=== PATIENT | male | born 1955 | race Caucasian/White ===

== ENCOUNTER 2016-08-20 20:57 | Inpatient (IN) | payer OTHER, MEDICARE ==
[~2016-08-20] VITALS: Ht 180.3 cm; Wt 72.1 kg
--- NOTE | ~2016-08-20 | CNG ---
[facility] [place] [address] CYTO-NONGYN REPORT PROCEDURE Name: SAL HUGGINS Room #: 439-P DIS IN M.R.#: [id number] Admission: 08/20/16 Date of : 53 Discharge: 08/26/16 Report #: [id number] Path Case #: [id number] CYTOPATHOLOGY REPORT COLLECTION DATE: 08/25/2016 RECEIVED DATE: 08/25/2016 SUBMITTING PHYS: Dr. Terell Quintanilla OTHER PHYS: Dr. Nicole Torres CLINICAL HISTORY: SOB; Pneumonia PROCEDURE: A. Passes performed by Dr. Quintanilla yielding fluid. Four H and E slides, and 15 mL from needle rinsed in formalin were submitted to the lab. B .Passes performed by Dr. Quintanilla yielding fluid. Two H and E slides Pass 1, two H and E slides Pass 6. Thirty mL from needle rinsed in formalin were submitted to the lab. C. Passes performed by Dr. Quintanilla yielding fluid. Two H and E slides, and 20 mL from needle rinsed in formalin were submitted to the lab. D. Passes performed by Dr. Quintanilla yielding fluid. Two H and E slides, and 10 mL from needle rinsed in formalin were submitted to the lab. SPECIMEN(S) RECEIVED: A.EBUS guided Fine needle aspiration, lymph node 11R Passes 6 B.EBUS guided Fine needle aspiration, lymph node 7 Passes 1-7 C.EBUS guided Fine needle aspiration, lymph node 11L Passes 1-3 D.EBUS guided 19 gaugeTBNA, lymph node 7 Passes 1-2 E.Bronchoalveolar lavage, RUL F.Bronchial brushings, RUL G.Bronchial brush rinse, RUL * * * * * * * * * * * * FINAL DIAGNOSIS: A. Lymph node 11R Passes 1- 6, EBUS guided Fine needle aspiration: No malignant cells identified. Lymphoid cells and bronchial epithelial cells. B. Lymph node 7 Passes 1-7, EBUS guided Fine needle aspiration: No malignant cells identified. Lymphoid aggregates and bronchial epithelial cells. C. Lymph node 11L Passes 1-3, EBUS guided Fine needle aspiration: No malignant cells identified. Blood, lymphocytes and rare bronchial epithelial cells. D. Lymph node 7 Passes 1-2, EBUS guided 19 gaugeTBNA: No malignant cells identified. Blood, lymphocytes and cartilage. E. Lung, RUL, Bronchoalveolar lavage: No malignant cells identified. Bronchial epithelial cells, alveolar [address] [address] CYTO-NONGYN REPORT PROCEDURE Name: SAL HUGGINS [place] Room #: 439-P [facility] IN M.R.#: [id number] Admission: 08/20/16 Date of : 53 Discharge: 08/26/16 Report #: [id number] Path Case #: [id number] macrophages and inflammatory cells. F. Lung, RUL, Bronchial brushings: No malignant cells identified. Sheets of reactive bronchial epithelial cells, alveolar macrophages and marked acute inflammation. G. Lung, RUL, Bronchial brush rinse: No malignant cells identified. Bronchial epithelial cells, alveolar macrophages and inflammatory cells. COMMENT: [facility] (parts F and G only) - Dr. Sabi Turner. The concurrent biopsy [id number] is pending at the time of this report. Please refer to a separate report for details. (IUV; 08/28/16) PATHOLOGIST: Shea Burger M.D. REPORT ELECTRONICALLY SIGNED BY: Shea Burger M.D. DATE/TIME: 08/28/2016 15:50 * * * * * * * * * * * * GROSS PATHOLOGY: A. EBUS guided Fine needle aspiration, lymph node 11R Passes 6: The specimen is labeled "Sweet, Sal Miles" and consists of four H and E slides. Fifteen mL of cloudy brown fluid in formalin from the needle rinse is also submitted and a cell block only was prepared from this material. B. EBUS guided Fine needle aspiration, lymph node 7 Passes 1-7: The specimen is labeled "Sweet, Sal Miles" and consists of two H and E slides from Pass 1 and four H and E slides from Pass 6. Thirty mL of cloudy red fluid in formalin from the needle rinse is also submitted and a cell block only was prepared from this material. C. EBUS guided Fine needle aspiration, lymph node 11 L Passes 1-3: The specimen is labeled "Sweet, Sal Miles" and consists of two H and E slides. Twenty mL of clear colorless fluid in formalin from the needle rinse is also submitted and a cell block only was prepared from this material. D. EBUS guided 19 gauge TBNA lymph node 7 Passes 1-2: The specimen is labeled "Sweet, Sal Miles" and consists of two H and E slides. Ten mL of clear fluid with red specks in formalin from the needle rinse is also submitted and a cell block only was prepared from this material. E. Bronchoalveolar lavage, RUL: The specimen is submitted unfixed, labeled "Sweet, Sal Miles". Received by the Cytology Department is 15 mL of cloudy white fluid. One ThinPrep slide was prepared. F. Bronchial brushings, RUL: The specimen is labeled "Sweet, Sal Miles" and consists of five fixed slides. [address] [address] CYTO-NONGYN REPORT PROCEDURE Name: SAL HUGGINS Room #: 439-P DIS IN M.R.#: [id number] Admission: 08/20/16 Date of : 53 Discharge: 08/26/16 Report #: [id number] Path Case #: [id number] G. Bronchial brush rinse, RUL: The specimen is labeled "Sal Huggins" and consists of a brush tip in fixative. One ThinPrep slide was prepared. (clt 08.25.2016) IMMEDIATE EVALUATION: A. Pass 1: Per Dr. Burger: Bronchial epithelial cells and lymphoid cells. B. Pass 1: Per Dr. Burger: Lymphoid cells present along with bronchial epithelial cells. Pass 6: Per Dr. Burger: Fibrinoid degenerated cells. C. Pass 1: Per Dr. Burger: Blood only. D. Pass 7: Per Dr. Burger: Blood only. Professional services performed by [facility] at [facility] [address] [place] [address] TEACHER ASSOCIATE(S): RICKIE Mills(ASCP), [facility] INITIAL CPT CODE(S): A; 70970, 36686, 55907 B; 15800, 45097, 13018 C; 98057, 65334, 42566 D; 75636, 81781, 35606 E; 16457 F; 53260 G; 41161 Professional services performed by [facility] at [facility] [address], [place] [address] Technical services performed by [facility] at [address] [place] [address]., [address], [place] [address]. [facility] [address] [place] [address], [address] [place] [address] PHONE: [phone] DIRECTOR: Yunier Nathan M.D. * * * END OF REPORT * * *
--- NOTE | ~2016-08-20 | S ---
[facility] [address] [place] [address] SURGICAL PATH RPT PROCEDURE Name: SAL HUGGINS [place] Room #: 439-P ADM IN M.R.#: [id number] Admission: 08/20/16 Date of : 53 Discharge: Report #: [id number] Path Case #: [id number] PATHOLOGY REPORT DRAFT COLLECTION DATE: 08/25/2016 RECEIVED DATE: 08/25/2016 SPECIMEN(S) RECEIVED: YANG biopsy
--- NOTE | ~2016-08-20 | H ---
[facility] [place] [address] [address] HISTORY AND PHYSICAL Name: SAL HUGGINS Room #: 439-P ADM IN M.R.#: [id number] Admission: 08/20/16 Attend Phys: Nicole Torres MD Discharge: Date of : 53 Report #: [id number] THIS REPORT FOR: //name// CC: Vamsi Torres ATTENDING PHYSICIAN: Lloyd Ace MD PRIMARY CARE PHYSICIAN: Dr. Vamsi Rojas. CHIEF COMPLAINT: Cough, fevers and shortness of breath. HISTORY OF PRESENT ILLNESS: The patient is a 60-year-old male who said he has been through been dealing with pneumonia in the last few weeks, he has been through 2 to 5 rounds of antibiotics, he was admitted briefly at [facility] and received IV antibiotics. He has temporarily felt better and his fevers had resolved, but then in the last few days he again started having increasing cough and congestion. He occasionally produces some thick yellow sputum, says he does have some slight chest pain with his coughing in the middle of his chest. He denies any recent exertional chest pain. He has had some increasing shortness of breath. His fever yesterday was up to 101. He also has been having night sweats for the last month and has noted a 30 pound weight loss in the last few months. He had been evaluated by his primary doctor 6 days ago and there were concerns for lung cancer, so he was actually set up to see an oncologist today. Overall, he has been having a decreased appetite, but denies any nausea, vomiting or diarrhea. He has been using his nebulizer treatments at home and 3-4 times per day and has been wearing oxygen p.r.n. He is currently denying any new complaints and resting comfortably. PAST MEDICAL HISTORY: Diabetes, hypertension, hyperlipidemia, COPD, coronary artery disease. PAST SURGICAL HISTORY: Tendon repair, tonsillectomy, coronary stent times 2, and bilateral carotid stents. ALLERGIES: None. HOME MEDICATIONS: DuoNeb, fish oil, amlodipine, aspirin, Lasix, Symbicort, Advair, guaifenesin and metformin. SOCIAL HISTORY: The patient currently smokes half to 1 pack of cigarettes per day. At one point in his life he was smoking up to 6 packs per day when he was travelling long distances. He has smoked for at least 45 years. He use to drink alcohol regularly up to a 6 pack of beer per day, but he stopped that 3-4 weeks ago. He denies any drug use. He lives at home with his . He is on disability. [address] [address] HISTORY AND PHYSICAL Name: SAL HUGGINS [place] Room #: 439-[facility] IN M.R.#: [id number] Admission: 08/20/16 Attend Phys: Nicole Torres MD Discharge: Date of : 53 Report #: [id number] FAMILY HISTORY: His mother from he thinks multiple myeloma and described it as some sort of cancer that made holes in her skull. His father of liver cirrhosis from alcohol. REVIEW OF SYSTEMS: Twelve point review of systems was reviewed with the patient, otherwise negative unless stated in the HPI. PHYSICAL EXAMINATION: GENERAL: The patient is an alert male in no acute distress. VITAL SIGNS: Temperature is 37.6, heart rate 133, respirations 22, blood pressure is 134/82. Oxygen initially was 84% on room air. HEENT: PERRLA. Sclerae is nonicteric. Oral mucosa is pink and moist. NECK: Supple, no JVD noted. CARDIAC: Normal S1, S2. No murmurs, rubs or gallops. RESPIRATORY: Breath sounds are clear, diminished in both bases. Breathing is nonlabored. ABDOMEN: Soft, nontender, nondistended with positive bowel sounds. VASCULAR: No edema noted. Pedal pulses are 2+. NEUROLOGIC: The patient is alert and oriented times 3. Speech is clear. He is moving all extremities equally. No focal neuro deficits noted. SKIN: Intact. He does have some flushed look to his upper chest and neck area with some telangiectasia. He also was very diaphoretic at this time. LABS AND DIAGNOSTICS: WBC is 15 with bands of 9%, hemoglobin 15, platelets 349. Sodium is 131, potassium is 4.3, BUN 12, creatinine 0.7, glucose 209, lactate 1.1. LFTs are within normal limits. Troponins negative. BNP 77. Albumin is 2.4. ASSESSMENT AND PLAN: 1. Healthcare acquired pneumonia versus unresolved pneumonia. He does have associated leukocytosis with bandemia and fevers. CT did show possible underlying lung masses with adenopathy and there is concern for lung carcinoma, it was recommended that he continue with treatment for the pneumonia and have a followup CT in a few weeks. Since he has already been treated with IV and oral antibiotics, we will go ahead and consult oncology as he has also been having night sweats and weight loss and he was supposed to be set up to see oncology today. He will likely need a lung biopsy. 2. Acute on chronic respiratory failure. He is not bronchospastic. We will hold off on any further steroids at this time. Continue breathing treatments and wean oxygen as able. 3. Diabetes type 2. Blood sugars are stable. Hold metformin due to CTA and then add sliding scale insulin, check blood sugars a.c. and at bedtime. 4. History of coronary artery disease with prior stents. The patient denies any chest pain and troponins negative. 5. Hypertension. Blood pressure is stable. Continue home meds and monitor. 6. Chronic obstructive pulmonary disease with ongoing tobacco abuse. [facility] [address] [place] [address] HISTORY AND PHYSICAL Name: SAL HUGGINS [place] Room #: 439-P ADM IN M.R.#: [id number] Admission: 08/20/16 Attend Phys: Nicole Torres MD Discharge: Date of : 53 Report #: [id number] patient has been advised to quit. We will provide a nicotine patch and continue with breathing treatments and oxygen. 7. Deep venous thrombosis prophylaxis, place sequential compression devices. We will continue to follow the patient closely throughout the hospitalization and make changes based on clinical status. <ELECTRONICALLY SIGNED> By: ADIS Duncan 08/22/16 0658 0701 0736 ADIS Duncan /nt
--- NOTE | ~2016-08-20 | HC ---
[facility] [address] [address] CONSULTATION Name: SAL HUGGINS Room #: 439-P ADM IN M.R.#: [id number] Admission: 08/20/16 Attend Phys: Nicole Torres MD Discharge: Date of : 53 Report #: [id number] THIS REPORT FOR: //name// CC: Vamsi Samson MD PRIMARY CARE PHYSICIAN: Vamsi Rojas DO REFERRING PHYSICIAN: Lloyd Ace MD REASON FOR REFERRAL: Abnormal chest CT. HISTORY OF PRESENT ILLNESS: The patient is a 60-year-old white male who presented to emergency room with chest pain, dyspnea and cough. CT chest performed in the emergency room was abnormal. A pulmonary consultation was requested. The patient states that he has not been well for the last several weeks up to 2-3 months. He has been feeling weak, poor appetite along with gradual weight loss, approximately 30 pounds. About 3 weeks ago he was treated for pneumonia with febrile illness. Chest x-ray showed right-sided infiltrates. Symptoms improved on antibiotics, but not completely. Over the ensuing weeks he has had progressive cough and dyspnea. He continued to have poor appetite along with progressive weight loss. With progressive symptoms, the patient presented to the emergency room. The patient was scheduled to be seen by Oncology soon for these symptoms. CT chest was reviewed showing infiltrates and mediastinal adenopathy. The patient has smoked up to 6 packs a day for most of his life. He is currently smoking about a pack a day. Aside from the symptoms as mentioned above, he denies any headache, arthralgias, numbness, paresthesias. He denies any recent hemoptysis. PAST MEDICAL HISTORY: Remarkable for coronary artery disease, undergoing stent placement in 2007, peripheral artery disease undergoing bilateral carotid stent placement, RCA stent placement. He has history of COPD, ongoing tobacco abuse, hypertension, hypercholesterolemia. He has diabetes mellitus type 2. PAST SURGICAL HISTORY: Remarkable for prior tendon repair on the right hand, tonsillectomy. [facility] [address] [place] [address] CONSULTATION Name: SAL HUGGINS [place] Room #: 439-P [facility] IN M.R.#: [id number] Admission: 08/20/16 Attend Phys: Nicole Torres MD Discharge: Date of : 53 Report #: [id number] ALLERGIES: None to medications. HOME MEDICATIONS: Include metformin, aspirin, fish oil supplements, amlodipine, Lasix, Symbicort 80 mcg 2 puffs twice a day, DuoNebs q.i.d. FAMILY HISTORY: Mother had multiple myeloma. She has . Father of alcoholic liver disease. SOCIAL HISTORY: He is . 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 Tobacco history, as mentioned above. Denies any alcohol use. REVIEW OF SYSTEMS: As mentioned above, otherwise 10-point system review negative. PHYSICAL EXAMINATION: GENERAL: He is awake, alert, in no distress. VITAL SIGNS: Temperature is 97.5 degrees Fahrenheit, pulse is 96, respiratory rate is 18, blood pressure 106/61 mmHg, saturation 93% on 3 liters of O2. HEENT: Normocephalic, atraumatic. NECK: Supple, without any lymphadenopathy or thyromegaly. CHEST: Breath sounds are good bilaterally with few scattered crackles. No obvious wheezes. CARDIOVASCULAR: Normal S1, S2. There are no murmurs or gallop. There is no JVD. There is no carotid bruit. Pulses are 2+/4+ bilaterally. ABDOMEN: Soft, nontender, no organomegaly or masses felt. GENITOURINARY AND RECTAL: Deferred. EXTREMITIES: No cyanosis or clubbing or edema. LABORATORY DATA: CT chest shows patchy right-sided infiltrates with mass-like density seen in the azygoesophageal recess abutting the bronchus intermedius. Mild mediastinal adenopathy is noted. There is infiltrate/mass-like densities also noted in the left lower lobe superior basal segment. Sputum gram stain so far has been negative with normal lalitha. Electrolytes are normal. Liver function tests were grossly unremarkable except for mildly elevated alkaline phosphatase. WBC is 15,000 with bandemia. Platelets are normal. Hemoglobin is normal. Albumin 2.4. IMPRESSION: 1. Pulmonary infiltrates, density along with mediastinal adenopathy in this 60-year-old white male. Symptoms have been ongoing for the last 4-5 weeks with progressive weight loss, poor appetite. The patient is a heavy smoker, has been smoking up to 6 packs a day, now down to 1 pack a day. Bronchogenic carcinoma is likely along with possible pneumonia. 2. Pneumonia as mentioned above. With recent febrile illness, would recommend IV antibiotics. [address] [place] [address] CONSULTATION Name: SAL HUGGINS Room #: 9 ADM IN M.R.#: [id number] Admission: 08/20/16 Attend Phys: Nicole Torres MD Discharge: Date of : 53 Report #: [id number] 3. Chronic obstructive pulmonary disease, severity unknown. 4. Ongoing tobacco use. 5. Protein-calorie malnutrition, severe with an albumin of 2.4. 6. Acute on chronic hypoxic respiratory failure. 7. Diabetes mellitus type 2. 8. Hypertension. 9. Coronary artery disease with past stent placement. 10. Peripheral vascular disease status post multiple stent placements including the bilateral carotid bruits along with middle cerebral artery. RECOMMENDATION: Agree with broad spectrum antibiotics, corticosteroids and bronchodilators. Once clinically stable, being afebrile for at least 24-48 hours and clinically stable, we will proceed with bronchoscopy. Based on his radiographic findings, patient will benefit from endoscopic ultrasound, bronchoscopy with fine needle aspiration of the mediastinal mass. Baseline spirometry will be helpful and will be ordered. Once stable, we will parliamentary counsel regarding smoking cessation. Thank you for the consultation. <ELECTRONICALLY SIGNED> By: Levi Holden MD 08/23/16 1409 1441 0334 Levi Holden MD /nt
--- NOTE | ~2016-08-20 | EKG ---
[address] [address] ELECTROCARDIOGRAM REPORT Name: ASL HUGGINS Room #: 439-P ADM IN M.R.#: [id number] Admission: 08/20/16 Attend Phys: Nicole Torres MD Discharge: Date of : 53 Report #: [id number] THIS REPORT FOR: //name// [facility] ED Test Date: 2016-08-20 Test Time: 21:20:44 Pat Name: SAL HUGGINS Department: Room: 439 Gender: M Rn Managed Care: JERE : 1955 Requested By: Ella Ervin Order Number: [id number] MD: Elias Haas Measurements Intervals Hubbard Rate: 125 P: 77 NE: 137 QRS: -12 QRSD: 72 T: 70 QT: 300 QTc: 433 Interpretive Statements Sinus tachycardia LAE, consider biatrial enlargement No previous ECG available for comparison Electronically Signed On 08-25-2016 12:24:44 CDT by Elias Haas [email or web address] <ELECTRONICALLY SIGNED> By: Elias Haas MD 08/25/16 1224 19 19 Elias Haas MD /ALFREDITO
--- NOTE | ~2016-08-20 | P ---
[facility] [place] [address] [place] [address] PROCEDURE REPORT Name: SAL HUGGINS Room #: 439-P ADM IN M.R.#: [id number] Admission: 08/20/16 Attend Phys: Nicole Torres MD Discharge: Date of : 53 Report #: [id number] THIS REPORT FOR: //name// CC: Vamsi Rojas DO Nicole Holden MD DATE OF SERVICE: 08/25/2016 PROCEDURE: Fiberoptic bronchoscopy with transbronchial biopsies of the right upper lobe infiltrate as well as cytologic brushings of the right upper lobe infiltrate and endobronchial ultrasound-guided fine needle aspirates of level 11R lymph node, level 7 and 11L. The patient was done under general endotracheal anesthesia. Please see anesthesia notes for details on anesthesia. PROCEDURE NOTATION: After discussing risks, benefits of planned procedure with patient, he desired to proceed. After obtaining informed consent, procedure was arranged for operating room 2. The patient was brought back by anesthesia service and placed under general endotracheal anesthesia. An 8.[address] was in place. Once positioned and adequately anesthetized, fiberoptic bronchoscope was passed through the endotracheal tube until the distal trachea was seen. Endotracheal tube was repositioned to optimal position and secured in place. White light bronchoscopy was then performed to evaluate the mainstem, lobar, segmental and subsegmental bronchi. Trachea was very narrowed with a saber sheath appearance without any disease within the trachea otherwise. There was some narrowing to the right upper lobe and there was some widening of the primary kt. No other significant endobronchial disease noted. A bronchial lavage was performed in an area of the posterior portion of the right upper lobe and apical portion where there appeared to be significant mucus plugging. White light bronchoscope was then removed. Endobronchial ultrasound was then inserted and the lymph node stations were evaluated. Level 10R measured 6.6 mm, 11R 9.6 mm. Level 7 had a 32 mm area of mass, 4L had a 4.1 mm and a 11 L had 5 mm lymph node stations and no significant adenopathy. Samples were then collected of 11R lymph node with 25-gauge needle x 4 and then x 2 with a 22-gauge needle. Level 7 lymph node was sampled with the 22-gauge needle with ultrasound guidance x 7. An additional 3 passes were made with a white light bronchoscope at the end of procedure with the 19-gauge needle. A 11L lymph node was sampled 3 times with a 25-gauge aspirating needle. Endobronchial ultrasound was then removed. The white light bronchoscope was then reinserted using fluoroscopy. Cytologic brushings were obtained in the apical and posterior segment of the right upper lobe as well as transbronchial biopsies and as mentioned previously fine needle aspirates with 19-gauge needle with subcarinal area were also obtained at this time with the white light bronchoscope. Minimal bleeding was noted less than 20 mL. The patient tolerated well, some intermittent interruptions during the procedure were required to provide adequate ventilation and oxygenation to the [address] [address] PROCEDURE REPORT Name: BHAVNASAL PADILLA Room #: 439-P [facility] IN M.R.#: [id number] Admission: 08/20/16 Attend Phys: Nicole Torres MD Discharge: Date of : 53 Report #: [id number] patient. IMPRESSION: Markedly abnormal CT of the chest and endobronchial ultrasound with enlarged subcarinal masses, right hilar and left hilar lymphadenopathy, right greater than the left as well as parenchymal infiltrates with biopsy as above. Rapid onsite pathology did show some areas that appeared to have necrosis and some lymphoid tissue. No definitive malignancy was identified. PLAN: Await final pathology and microbiologic and cytologic tests. By: 1148 1248 Terell Quintanilla MD /kain
[~2016-08-20 20:57] MED LIST: ADVAIR HFA 1112 UNIT INH; ADVAIRDISKUS; AMLODIPINE BESYL5 MG PO; AMLODIPINE PO; ASPIRIN325 PO; CRESTOR40 MG PO; DUONEB 2.5-0.5 M3 ML; EFFIENT10 MG PO; FENOFIBRATE160 MG PO; FISHOIL; GLIPIZIDE ER10 MG PO; GLUCOPHAGE1000 MG PO; PLAVIX 75 MG TA75 MG PO; PREDNISONE 10 M10 M1 PO; PROMETHAZINE/C118 ML; SPIRIVA INH
[2016-08-20 20:58] VITALS: BP 134/82
[2016-08-20 21:24] LABS: HEMATOCRIT 44.7 % (42.0-52.0); MCH 29.7 pg (26.0-34.0); MCHC 33.6 g/dL (28.0-37.0); MCV 88.3 fL (80.0-100.0); PLATELET COUNT 349 thou/uL (150-400); RBC 5.06 mil/uL (4.50-6.00); RDW 14.3 % (10.5-14.5)
[2016-08-20 21:28] LABS: MANUAL DIFF YES
[2016-08-20 21:34] LABS: ANION GAP 8 mmol/L (7-16); BUN 12 mg/dL (7-18); CALCIUM 9.1 mg/dL (8.5-10.1); CHLORIDE 93 mmol/L (98-107); CO2 30 mmol/L (21-32); CREATININE 0.7 mg/dL (0.6-1.3); GLUCOSE 209 mg/dL (70-99); POTASSIUM 4.3 mmol/L (3.5-5.1); SODIUM 131 mmol/L (136-145)
[2016-08-20 21:45] LABS: ALBUMIN 2.4 g/dL (3.4-5.0); ALKALINE PHOSPHATASE 130 U/L (46-116); NT-PRO BRAIN NAT PEPTIDE 77 pg/mL (<300); SGOT 20 U/L (15-37); SGPT 26 U/L (30-65); TOTAL BILIRUBIN 0.3 mg/dL (<0.1-1.0); TOTAL PROTEIN 7.1 g/dL (6.4-8.2); TROPONIN-I < 0.04 ng/mL (<0.04-0.07)
[2016-08-20 22:01] LABS: ABSOLUTE NEUTROPHILS 12.9 thou/uL (1.4-8.2); TOTAL CELL COUNT 100
[2016-08-20 23:14] VITALS: BP 100/66
[2016-08-20 23:40] VITALS: BP 132/83
[2016-08-21] MEDS ORDERED: AMLODIPINE BESY10 MG PO (00:05)
[2016-08-21] MEDS ORDERED: LASIX 20 MG TAB20 MG PO (00:11)
[2016-08-21] MEDS ORDERED: SYMBICORT80 MCG/4.1 INH (00:12)
[2016-08-21] MEDS ORDERED: MUCINEX TA600 MG/TA2 PO (00:14)
[2016-08-21 04:16] VITALS: BP 116/758
[2016-08-21 05:20] LABS: HEMATOCRIT 45.4 % (42.0-52.0); HEMOGLOBIN 14.9 gm/dL (14.0-18.0); MCH 29.7 pg (26.0-34.0); MCHC 32.9 g/dL (28.0-37.0); MCV 90.5 fL (80.0-100.0); RBC 5.02 mil/uL (4.50-6.00); RDW 14.4 % (10.5-14.5); WBC 13.3 thou/uL (4.0-11.0)
[2016-08-21 05:28] LABS: CALCIUM 9.2 mg/dL (8.5-10.1); CREATININE 0.9 mg/dL (0.6-1.3); POTASSIUM 4.7 mmol/L (3.5-5.1)
[2016-08-21 09:20] VITALS: BP 119/67
[2016-08-21 12:15] VITALS: BP 106/61
[2016-08-21 16:05] VITALS: BP 108/58
[2016-08-21 19:50] VITALS: BP 96/52
[2016-08-21 21:12] LABS: GLYCOHEMOGLOBIN (HGB A1C) 8.7 % (4.8-5.6)
[2016-08-22 04:14] VITALS: BP 104/66
[2016-08-22 05:27] LABS: ABSOLUTE NEUTROPHILS 10.2 thou/uL (1.4-8.2); BASOPHILS 0.5 % (0.0-2.0); EOSINOPHILS 0.4 % (0.0-3.0); HEMATOCRIT 38.9 % (42.0-52.0); LYMPHOCYTES 10.9 % (24.0-44.0); MCH 29.3 pg (26.0-34.0); MCV 88.7 fL (80.0-100.0); MONOCYTES 6.4 % (1.0-8.0); PLATELET COUNT 328 thou/uL (150-400); POLYS 81.8 % (36.0-66.0); RBC 4.39 mil/uL (4.50-6.00); RDW 14.2 % (10.5-14.5); WBC 12.5 thou/uL (4.0-11.0)
[2016-08-22 05:28] LABS: HEMOGLOBIN 12.8 gm/dL (14.0-18.0); MANUAL DIFF NO
[2016-08-22 05:45] LABS: CALCIUM 8.7 mg/dL (8.5-10.1); CREATININE 0.7 mg/dL (0.6-1.3); POTASSIUM 4.3 mmol/L (3.5-5.1)
[2016-08-22 08:39] VITALS: BP 107/60
[2016-08-22 12:44] VITALS: BP 105/65
[2016-08-22 16:55] VITALS: BP 117/64
[2016-08-22 19:25] VITALS: BP 112/80
[2016-08-23 04:13] VITALS: BP 120/99
[2016-08-23 07:16] VITALS: BP 125/76
[2016-08-23 11:26] VITALS: BP 114/73
[2016-08-23 14:17] LABS: PROTIME 10.2 Seconds (9.3-11.4)
[2016-08-23 19:50] VITALS: BP 118/72
[2016-08-23 23:30] VITALS: BP 122/80
[2016-08-24 04:25] VITALS: BP 111/65
[2016-08-24 07:54] VITALS: BP 101/67
[2016-08-24 11:36] VITALS: BP 113/69
[2016-08-24 16:17] VITALS: BP 101/74
[2016-08-24 19:55] VITALS: BP 123/79
[2016-08-25 04:34] LABS: HEMATOCRIT 42.7 % (42.0-52.0); HEMOGLOBIN 14.2 gm/dL (14.0-18.0); MCH 29.5 pg (26.0-34.0); MCHC 33.2 g/dL (28.0-37.0); PLATELET COUNT 371 thou/uL (150-400); RBC 4.79 mil/uL (4.50-6.00); RDW 14.4 % (10.5-14.5); WBC 14.3 thou/uL (4.0-11.0)
[2016-08-25 04:44] LABS: MANUAL DIFF YES
[2016-08-25 04:48] LABS: CALCIUM 8.8 mg/dL (8.5-10.1); CREATININE 0.8 mg/dL (0.6-1.3)
[2016-08-25 08:00] VITALS: BP 110/70
[2016-08-25 08:05] LABS: ABSOLUTE NEUTROPHILS 11.9 thou/uL (1.4-8.2); PLATELET ESTIMATE NORMAL; TOTAL CELL COUNT 100
[2016-08-25 16:00] VITALS: BP 92/52
[2016-08-25 16:08] VITALS: BP 110/70
[2016-08-25 17:23] VITALS: BP 106/60
[2016-08-25 20:14] VITALS: BP 119/77
[2016-08-26 05:29] LABS: HEMATOCRIT 39.2 % (42.0-52.0); MCH 29.3 pg (26.0-34.0); MCHC 33.1 g/dL (28.0-37.0); MCV 88.5 fL (80.0-100.0); PLATELET COUNT 336 thou/uL (150-400); RBC 4.43 mil/uL (4.50-6.00); RDW 14.6 % (10.5-14.5); WBC 14.1 thou/uL (4.0-11.0)
[2016-08-26 05:32] LABS: MANUAL DIFF YES
[2016-08-26 05:44] LABS: CALCIUM 8.4 mg/dL (8.5-10.1); CREATININE 0.9 mg/dL (0.6-1.3)
[2016-08-26 05:53] VITALS: BP 120/71
[2016-08-26 07:14] LABS: ABSOLUTE NEUTROPHILS 12.7 thou/uL (1.4-8.2); TOTAL CELL COUNT 100
[2016-08-26 08:00] VITALS: BP 105/60
[2016-08-26 10:37] VITALS: BP 101/55
[2016-08-26] MEDS ORDERED: AUGMENTIN 875875 MG PO (14:18)
[2016-08-26 14:23] VITALS: BP 101/55
== END 2016-08-26 15:00 | disposition home or self-care (01) | DRG 166 ==
LOC: ER 20:57 → 4S 22:46 → EROBS 22:46 → 4S 23:53
PROVIDERS: Emergency Medicine; Family Medicine; Internal Medicine; Internal Medicine Endocrinology, Diabetes & Metabolism; Internal Medicine Pulmonary Disease
PROC: 0BBC8ZX Excision of Right Upper Lung Lobe, Via Natural or Artificial Opening Endoscopic, Diagnostic (ICD-10-PCS; principal; 2016-08-25)
DX: J96.21 Acute and chronic respiratory failure with hypoxia (principal); J15.6 Pneumonia due to other Gram-negative bacteria; E43 Unspecified severe protein-calorie malnutrition; J44.0 Chronic obstructive pulmonary disease with (acute) lower respiratory infection; J44.1 Chronic obstructive pulmonary disease with (acute) exacerbation; I10 Essential (primary) hypertension; E78.5 Hyperlipidemia, unspecified; I25.10 Atherosclerotic heart disease of native coronary artery without angina pectoris; R59.0 Localized enlarged lymph nodes; F17.210 Nicotine dependence, cigarettes, uncomplicated; R91.8 Other nonspecific abnormal finding of lung field; E11.51 Type 2 diabetes mellitus with diabetic peripheral angiopathy without gangrene; Z68.22 Body mass index [BMI] 22.0-22.9, adult; Z79.899 Other long term (current) drug therapy; Z80.7 Family history of other malignant neoplasms of lymphoid, hematopoietic and related tissues; Z79.82 Long term (current) use of aspirin; Z95.5 Presence of coronary angioplasty implant and graft
CPT/HCPCS: 10100; 50010; 62110; 70005

== ENCOUNTER → 2016-09-20 | Outpatient (CLI) | payer OTHER, MEDICARE ==
[~2016-09-20] MED LIST changes: +AMLODIPINE BESY10 MG PO; +AUGMENTIN 875875 MG PO; +LASIX 20 MG TAB20 MG PO; +MUCINEX TA600 MG/TA2 PO; +SYMBICORT80 MCG/4.1 INH
== END ==
LOC: PET 13:30
DX: R91.1 Solitary pulmonary nodule (principal)

== ENCOUNTER → 2016-09-22 | Outpatient (CLI) | payer OTHER, MEDICARE ==
[2016-09-22 09:44] LABS: CREATININE 0.8 mg/dL (0.7-1.3)
== END ==
LOC: CAT 09:19
PROVIDERS: Internal Medicine Pulmonary Disease
DX: J44.9 Chronic obstructive pulmonary disease, unspecified (principal); J18.9 Pneumonia, unspecified organism

== ENCOUNTER 2016-10-02 06:31 | Day surgery (SDC) | payer OTHER, MEDICARE ==
[~2016-10-02] VITALS: Ht 175.3 cm; Wt 76.2 kg
--- NOTE | ~2016-10-02 | P ---
[facility] [place] [address] PROCEDURE REPORT Name: SAL HUGGINS Room #: 150-10 [facility] M.R.#: [id number] Admission: 10/02/16 Attend Phys: Terell Quintanilla MD Discharge: Date of : 53 Report #: [id number] THIS REPORT FOR: //name// CC: Vamsi Rojas DO Terell Quintanilla DATE OF SERVICE: 10/02/2016 PROCEDURE: Fiberoptic bronchoscopy under general endotracheal anesthesia with endobronchial ultrasound sampling with fine needle aspirates of lymph nodes 7 and 4R as well as transbronchial biopsies of the right upper lobe and a bronchioalveolar lavage to the right upper lobe. INDICATION: Persistent right upper lobe infiltrate and left lower lobe infiltrate as well as mediastinal adenopathy, positive on PET, worrisome for malignancy, negative previous diagnostic bronchoscopy, ASA classification class II. PROCEDURE NOTATION: After discussing risks and benefits of planned procedure with the patient. He desired to proceed. After obtaining informed consent, the patient was brought to the OR room 1 by Anesthesia Service and placed on general endotracheal anesthesia. An 8.5 endotracheal tube was positioned. Please see anesthesia notes in this regard. Once accomplished, an endobronchial ultrasound device was used first, since the patient had previously undergone prior procedure. The lymph node stations were all evaluated using the ultrasound device in usual fashion. There is an 11R lymph node measuring 8 mm. No significant 10R lymph node appreciated. Level 7 lymph node measured 16 mm. A 4R 12 mm. A 4L 8 mm. An 11L 8 mm. No 10L was appreciated. Once this was accomplished, level 7 lymph node underwent several needle aspirates including, 1-5 22 gauge regular needle aspirates with some immediate rapid onsite pathology slides made and the rest 22 core needle aspirates with formalin specimens sent. Rapid onsite pathology did not show significant lymphocytes or any other specimen. A 4R lymph node was sampled using 22 regular needle twice with one specimen sent and RPMI solution. Other specimens sent were two 4R core 22 gauge core needles. A bronchial lavage was then performed in the right upper lobe using standard white light bronchoscopy and a several forceps biopsies were obtained in the right upper lobe and infiltrate using fluoroscopic guidance. Total fluoroscopy time was 3 minutes and 25 seconds. The patient tolerated well. No noted complications. The patient will remain on general anesthesia at the time of this dictation. <ELECTRONICALLY SIGNED> By: Terell Quintanilla MD 10/03/16 1330 1632 0324 Terell Quintanilla MD /nt
--- NOTE | ~2016-10-02 | S ---
[facility] [place] [address] SURGICAL PATH RPT PROCEDURE Name: SAL HUGGINS Room #: DEP [facility]..#: [id number] Admission: 10/02/16 Date of : 53 Discharge: 10/02/16 Report #: [id number] Path Case #: [id number] PATHOLOGY REPORT COLLECTION DATE: 10/02/2016 RECEIVED DATE: 10/03/2016 SUBMITTING PHYS: Dr. Terell Quintanilla OTHER PHYS: Dr. Vamsi Rojas SPECIMEN(S) RECEIVED: A.EBUS biopsy forceps RUL * * * * * * * * * * * * FINAL DIAGNOSIS: Lung, right upper lobe, forceps biopsy: - Poorly formed non-necrotizing granulomata. - Alveolated lung parenchyma with focal intraparenchymal hemorrhage. - Negative for vasculitis. - Negative for dysplasia or malignancy. COMMENT: Acid fast bacillus and Gomori methenamine silver stains performed on block A1 are negative for mycobacterial as well as fungal elements, respectively. Co-reviewed: Dr. Sabi Turner. PATHOLOGIST: Shea Burger M.D. REPORT ELECTRONICALLY SIGNED BY: Shea Burger M.D. DATE/TIME: 10/04/2016 16:41 * * * * * * * * * * * * GROSS PATHOLOGY: Received in formalin labeled "Sal Huggins, biopsy forceps RUL," are five segments of abebe soft tissue measuring 0.5 x 0.5 x 0.1 cm in aggregate dimensions and ranging from 0.1 to 0.3 cm in maximum dimension. The specimen is submitted entirely in cassette A1. (CAA; 10/03/2016) CLINICAL HISTORY: None provided INITIAL CPT CODE(S): A; 11467, 98214, 27106 Professional services performed by [facility] at [facility] [address] [place] [address] SURGICAL PATH RPT PROCEDURE Name: SAL HUGGISN Room #: DEP [facility] [place]#: [id number] Admission: 10/02/16 Date of : 53 Discharge: 10/02/16 Report #: [id number] Path Case #: [id number] [address] [facility] , [place] [address] Technical services performed by [facility] at [address] [place] [address], [facility] [address] [address]. [place] [address] PHONE: [phone] DIRECTOR: Yunier Nathan M.D. * * * END OF REPORT * * *
--- NOTE | ~2016-10-02 | CNG ---
[facility] [place] [address] CYTO-NONGYN REPORT PROCEDURE Name: SAL HUGGINS Room #: DEP [facility]..#: [id number] Admission: 10/02/16 Date of : 53 Discharge: 10/02/16 Report #: [id number] Path Case #: [id number] CYTOPATHOLOGY REPORT COLLECTION DATE: 10/03/2016 RECEIVED DATE: 10/03/2016 SUBMITTING PHYS: Dr. Terell Quintanilla OTHER PHYS: Dr. Nicole Rojas CLINICAL HISTORY: Abnormal CT. See also [id number]. PROCEDURE: A. Passes performed by Dr. Quintanilla yielding fluid. Six H and E slides, and 45 mL from needle rinsed in formalin were submitted to the lab. B. Passes performed by Dr. Quintanilla yielding fluid. Two H and E slides, and 45 mL from needle rinsed in formalin were submitted to the lab. SPECIMEN(S) RECEIVED: A.EBUS guided Fine needle aspiration, lymph node 7 Passes 1-9 B.EBUS guided Fine needle aspiration, lymph node 4R Passes 1-4 C.EBUS guided Bronchoalveolar lavage, RUL * * * * * * * * * * * * FINAL DIAGNOSIS: A. Lymph node 7, passes 1-9, EBUS guided fine needle aspiration: - No malignant cells identified. Few lymphocytes along with abundant bronchial epithelial cells as well as abundant cartilage identified. B. . Lymph node 4R, passes 1-4, EBUS guided fine needle aspiration: - No malignant cells identified. Lymphocytes and bronchial cells identified, crushed lymphoid aggregates, compatible with aspiration of a lymph node.. C. Lung, right upper lobe, bronchoalveolar lavage: - No malignant cells identified. Pulmonary macrophages, bronchial cells and inflammation identified. COMMENT: A portion of node 7 aspirate was submitted in RPMI and sent to [facility] for flow cytometric analysis ([id number]). The analysis showed a paucicellular specimen with no immunophenotypic evidence for non-Hodgkin lymphoma detected. The comment reads that although there was no immunophenotypic evidence for B cell or T cell non-Hodgkin lymphoma detected in the specimen, the specimen was paucicellular with a decreased viability. Please see separate report for details. [address] [address] CYTO-NONGYN REPORT PROCEDURE Name: SAL HUGGINS Room #: DEP [facility]#: [id number] Admission: 10/02/16 Date of : 53 Discharge: 10/02/16 Report #: [id number] Path Case #: [id number] The concurrent biopsy tissue ([id number]) showed scattered rare poorly-formed granulomata. Please see separate report for details. (IUV:csd; d/t: 10/04/2016) PATHOLOGIST: Shea Burger M.D. REPORT ELECTRONICALLY SIGNED BY: Shea Burger M.D. DATE/TIME: 10/04/2016 16:34 * * * * * * * * * * * * GROSS PATHOLOGY: A. EBUS guided Fine needle aspiration, lymph node 7 Passes 1-9: The specimen is labeled "Sweet, Sal" and consists of six H and E slides. Forty-five mL of dark brown fluid in formalin from the needle rinse is also submitted and a cell block only was prepared from this material. B. EBUS guided Fine needle aspiration, lymph node 4R Passes 1-4: The specimen is labeled "Sweet, Sal" and consists of two H and E slides. Forty-five mL of cloudy brown fluid in formalin from the needle rinse is also submitted and a cell block only was prepared from this material. C. EBUS guided Bronchoalveolar lavage, RUL: The specimen is submitted unfixed, labeled "Sweet, Sal". Received by the Cytology Department is 20 mL of cloudy pink fluid. One ThinPrep slide was prepared. (clt 10.03.2016) IMMEDIATE EVALUATION: A. Per Dr. Burger: Pass 1- Blood bronchial epithelial cells only, Pass 5- Repositioned needle to redraw)-Bronchial epithelial cells and cartilage, Pass 6- Cartilage and bronchial epithelial cells. B. Per Dr. Burger: Lymphoid tissue present. Professional services performed by [facility] at [facility] [address] [place] [address] [employer]CH[employer]IC(S): RICKIE Urrutia(ASCP) INITIAL CPT CODE(S): A; 06396, 96064, 13745 B; 28535, 88130, 00316 C; 06298 Professional services performed by [facility] at [facility] [address] [place] [address] Technical services performed by [facility] at [address] [place] [address], [address], [place] [address]. [facility] [address] [place] [address] CYTO-NONGYN REPORT PROCEDURE Name: SAL HUGGINS KREMLIN Room #: DEP [facility] [place]#: [id number] Admission: 10/02/16 Date of : 53 Discharge: 10/02/16 Report #: [id number] Path Case #: [id number], [address] [place] [address] PHONE: [phone] DIRECTOR: Yunier Nathan M.D. * * * END OF REPORT * * *
[~2016-10-02 06:31] MED LIST changes: +ADVAIR 500-501 EACH INH; -DUONEB 2.5-0.5 M3 ML; +DUONEB 2.5-0.5 M3 ML INH; +FISH OIL 1,001000 M2 PO; +INVOKANA300 MG PO; +LIPITOR80 MG PO; +PROAIR HFA8.5 GM INH
[2016-10-02 11:19] LABS: HEMATOCRIT 46.8 % (42.0-52.0); HEMOGLOBIN 15.5 gm/dL (14.0-18.0); MCHC 33.1 g/dL (28.0-37.0); MCV 87.8 fL (80.0-100.0); RBC 5.33 mil/uL (4.50-6.00); RDW 15.7 % (10.5-14.5); WBC 12.3 thou/uL (4.0-11.0)
[2016-10-02 11:26] LABS: CALCIUM 9.3 mg/dL (8.5-10.1); CREATININE 0.8 mg/dL (0.7-1.3); POTASSIUM 4.5 mmol/L (3.5-5.1)
[2016-10-02 11:30] VITALS: BP 137/77
[2016-10-02 11:36] LABS: APTT 25.9 Seconds (24.5-32.8); PROTIME 9.9 Seconds (9.3-11.4)
[2016-10-03 02:29] LABS: GLYCOHEMOGLOBIN (HGB A1C) 9.1 % (4.8-5.6)
== END 2016-10-02 17:45 | disposition home or self-care (01) ==
LOC: TBA 06:31 → OR 06:31
PROVIDERS: Internal Medicine Pulmonary Disease
DX: J84.10 Pulmonary fibrosis, unspecified (principal); E11.9 Type 2 diabetes mellitus without complications; F17.210 Nicotine dependence, cigarettes, uncomplicated; J43.8 Other emphysema; K21.9 Gastro-esophageal reflux disease without esophagitis
CPT/HCPCS: 50010; 62110; 62900; 70005

== ENCOUNTER → 2017-03-09 | Outpatient (CLI) | payer OTHER, MEDICARE | LOC: CAT 09:38 | DX: J98.4 Other disorders of lung (principal); I25.10 Atherosclerotic heart disease of native coronary artery without angina pectoris; R91.8 Other nonspecific abnormal finding of lung field ==

== ENCOUNTER 2017-05-10 11:23 | Inpatient (IN) | payer OTHER, MEDICARE ==
[~2017-05-10] VITALS: Ht 175.3 cm; Wt 77.1 kg
--- NOTE | ~2017-05-10 | HC ---
[facility] [place] [address] CONSULTATION Name: SAL HUGGINS Room #: 426-[facility] IN M.R.#: [id number] Admission: 05/10/17 Attend Phys: Zechariah Song MD Discharge: 05/12/17 Date of : 53 Report #: [id number] THIS REPORT FOR: //name// CC: Zechariah Toribio MD FAM unknown Vamsi Rojas MD DATE OF SERVICE: 05/10/2017 REASON FOR CONSULTATION: Pneumonia. CHIEF COMPLAINT: Shortness of breath, cough, and chest tightness. 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 He has been off all treatment except for bronchodilators. Over the last week or so, some increasing shortness of breath, cough productive of yellow sputum, went to the emergency department several days ago, was attempted to be admitted for pneumonia, had to care for his who is to undergo a surgical intervention. He was started on Augmentin with only minor improvement in symptoms, also, he has been doing nebulizer treatments about 4 times daily. Over the last month, no fevers, chills, or sweats, started having some chest tightness today and presented to the emergency department. CT scan of the chest PE current protocol revealed no PE, but did reveal findings of a stable right upper lobe and scant left lower lobe changes as described in HPI. He was started on antimicrobial therapy and breathing treatments. ALLERGIES: None known. PAST MEDICAL HISTORY: 1. Diabetes mellitus type 2. 2. History of histoplasmosis pulmonary. 3. Coronary artery disease. 4. Carotid artery stenosis. 5. Hypertension. 6. Hyperlipidemia. 7. Tobacco abuse. SOCIAL HISTORY: Active smoker about a pack per day for 40 years, pretty much weekly alcohol consumption. FAMILY HISTORY: Significant for father who at 50 from [facility] [place] [address] CONSULTATION Name: SAL HUGGINS CARNEGIE Room #: 426-P [facility] IN M.R.#: [id number] Admission: 05/10/17 Attend Phys: Zechariah Song MD Discharge: 05/12/17 Date of : 53 Report #: [id number] liver disease. Mother had multiple myeloma. OUTPATIENT MEDICATIONS: Have included recently Augmentin, albuterol, amlodipine, Symbicort, aspirin, Invokana, fish oil, Lasix, hydrochlorothiazide, Meloxicam, and metformin. REVIEW OF SYSTEMS: CONSTITUTIONAL: No weight loss. No fevers or chills. ENT: No upper respiratory congestion, rhinorrhea, or dysphagia. CARDIOVASCULAR: No chest pains except as described in HPI. No palpitations. GASTROINTESTINAL: No nausea, vomiting, diarrhea, constipation, or abdominal pain. GENITOURINARY: No dysuria, no frequency or hematuria. INTEGUMENT: Denies any rash. MUSCULOSKELETAL: No joint pains or swelling. PHYSICAL EXAMINATION: VITAL SIGNS: He is afebrile, pulse 90s, respiratory rate 20, blood pressure 133/61, and oxygen saturation 96% on 2 liters. GENERAL: This is a pleasant middle-aged male, in no distress. HEENT: Clear oropharynx. No thrush. No erythema. NECK: Supple. No lymphadenopathy. LUNGS: Diminished, prolonged expiratory phase. Right upper lobe crackles noted. CARDIOVASCULAR: Heart regular. No murmurs. ABDOMEN: Soft, nontender, no masses. EXTREMITIES: Without edema. INTEGUMENT: Without rash. LABORATORY DATA: CBC normal. Chemistry profile: Sodium 133, potassium 4.1, chloride 99, bicarbonate 26, BUN 18, creatinine 0.9, and glucose 170. Liver enzymes normal. Arterial blood gas on room air revealed pH 7.43, pCO2 of 38, pO2 67, and bicarbonate 25. IMPRESSION: 1. Lower respiratory infection consistent with pneumonia, maybe superimposed on his chronic infiltrative changes and fibrosis. 2. Chronic obstructive pulmonary disease with acute exacerbation. 3. Coronary artery disease. 4. Diabetes mellitus type 2. RECOMMEND: 1. We will ask infectious disease to reevaluate. 2. Systemic steroids with taper. 3. Continue with bronchodilators. 4. Consider adding airway clearance with flutter valve and/or IPV. [address] [address] CONSULTATION Name: SAL HUGGINS CARNEGIE Room #: 426-P [facility] IN M.R.#: [id number] Admission: 05/10/17 Attend Phys: Zechariah Song MD Discharge: 05/12/17 Date of : 53 Report #: [id number] 5. Titrate FiO2. 6. Mobilize as tolerated. 7. Additional recommendations to follow while hospitalized. <ELECTRONICALLY SIGNED> By: Terell Quintanilla MD 05/17/17 2316 02 1030 Terell Quintanilla MD /nt
--- NOTE | ~2017-05-10 | HC ---
[facility] [place] [address] [place] [address] CONSULTATION Name: SAL HUGGINS Room #: 426-P ADM IN M.R.#: [id number] Admission: 05/10/17 Attend Phys: Zechariah Song MD Discharge: Date of : 53 Report #: [id number] THIS REPORT FOR: //name// CC: Zechariah KUMAR unknown DATE OF SERVICE: 05/11/2017 REASON FOR CONSULTATION: I was asked to evaluate concerning pneumonia. HISTORY OF PRESENT ILLNESS: The patient is a 61-year-old with underlying history of COPD, coronary artery disease, diabetes and hypertension. 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 He is now 18 weeks into his treatment program with itraconazole. Plan was to go for 1 year. Areas of concern included the right upper lobe and left lower lobe. He had evidence of necrotizing pneumonia with nodular infiltrates. He also had some mediastinal adenopathy. On 08/25/2016 and 10/02/2016, he had undergone initially bronchoscopy followed by ultrasound-guided biopsy, which revealed both necrotizing and non-necrotizing granulomas. Cultures did remain negative for bacteria, fungus and AFB. His serologic workup was negative. His histoplasma antibody titer was 1:2 with a positive M band. Other workup for granulomatous disease, hypersensitivity, pneumonitis was negative. His CD4 count was normal. Immunoglobulin levels were unremarkable. Sedimentation rate was normal. His followup histoplasma antibody titers in October revealed a histoplasma complement fixation 1:16 with a positive immunodiffusion band. His histoplasma serum antigen was negative. With this, he was determined he should go on antifungal therapy. He is now on itraconazole and doing well with this. This past week, he developed increased cough with purulent sputum production. No fever, chills or sweats. Progressive shortness of breath. Was seen in the Emergency Room and placed on Augmentin. He did not improve with this and is now hospitalized for further treatment. Since being hospitalized, he has had corticosteroids increased. He is on azithromycin and ceftriaxone. Today, he does feel better. He had no travel. His has been without a respiratory tract infection. His immunizations are up-to-date for influenza. ALLERGIES: None known. MEDICATIONS: As noted on his MAR, which were reviewed. PAST MEDICAL HISTORY: Diabetes, histoplasma, coronary artery disease, carotid artery disease, hypertension, hyperlipidemia. SOCIAL HISTORY: He is a smoker of cigarettes. Minimal alcohol intake. [facility] [address] [place] [address] CONSULTATION Name: SAL HUGGINS MUSSELS[place]LL Room #: 426-P [facility] IN M.R.#: [id number] Admission: 05/10/17 Attend Phys: Zechariah Song MD Discharge: Date of : 53 Report #: [id number] FAMILY HISTORY: Multiple myeloma, alcoholic liver disease. REVIEW OF SYSTEMS: No GI or complaints. No skin issues. PHYSICAL EXAMINATION: VITAL SIGNS: Afebrile, hemodynamically stable. GENERAL: He is alert and cooperative and pleasant, in no acute distress. HEENT: Unremarkable. CHEST: Decreased breath sounds bilaterally with no consolidation. HEART: Regular without murmur. ABDOMEN: Soft and nontender. No peripheral edema. NEUROLOGIC: Normal. LABORATORY STUDIES: Sodium 134, potassium 4.9, bicarbonate of 25, creatinine 1. Hemoglobin 15, WBC 13, platelet count 289,000. Sputum cultures pending. Blood cultures are pending. Chest x-ray: Patchy right upper lobe opacity. CT scan of the chest compared to 03/09/2017, no PE. Bullous emphysema changes again seen with no change, opacity right upper lobe similar, opacities in the left upper lobe and left lower lobe similar. No new pulmonary infiltrates. IMPRESSION: A 61-year-old underlying chronic obstructive pulmonary disease, on treatment for pulmonary histoplasmosis, now with acute exacerbation of chronic obstructive pulmonary disease with bronchitis. PLAN: Recommend continuing antibiotic therapy. We will screen for viral respiratory panel and await sputum culture. <ELECTRONICALLY SIGNED> By: Shine Toribio MD 05/12/17 1129 1344 2300 Shine Toribio MD /nt
[2017-05-10 11:23] VITALS: BP 128/88
[2017-05-10 12:07] LABS: ABSOLUTE NEUTROPHILS 7.5 thou/uL (1.4-8.2); BASOPHILS 1.1 % (0.0-2.0); EOSINOPHILS 2.1 % (0.0-3.0); HEMATOCRIT 48.9 % (42.0-52.0); HEMOGLOBIN 16.7 gm/dL (14.0-18.0); LYMPHOCYTES 14.9 % (24.0-44.0); MANUAL DIFF NO; MCHC 34.2 g/dL (28.0-37.0); MCV 90.7 fL (80.0-100.0); MONOCYTES 4.5 % (1.0-8.0); PLATELET COUNT 291 thou/uL (150-400); POLYS 77.4 % (36.0-66.0); RDW 14.7 % (10.5-14.5); WBC 9.6 thou/uL (4.0-11.0)
[2017-05-10 12:15] LABS: CALCIUM 9.3 mg/dL (8.5-10.1); CREATININE 0.9 mg/dL (0.7-1.3); POTASSIUM 4.1 mmol/L (3.5-5.1)
[2017-05-10 12:20] LABS: ALBUMIN 3.6 g/dL (3.4-5.0); TOTAL BILIRUBIN 0.2 mg/dL (<0.1-1.0); TOTAL PROTEIN 7.4 g/dL (6.4-8.2)
[2017-05-10] MEDS ORDERED: SYMBICORT160 MCG/4. INH (12:53)
[2017-05-10] MEDS ORDERED: ITRACONAZOLE 1100 M1 PO (12:54)
[2017-05-10 13:11] LABS: ABG SAMPLE TYPE ARTERIAL; BE(vivo) 0.5 mmol/L (-2 to +3); HCO3 24.5 mmol/L (22.0-26.0); LACTATE 1.12 mmol/L (0.5-2.0); O2(CT) 21.4 mL/dL (15.0-23.0); O2Hb 87.8 % (92.0-98.0); PO2 66.6 mmHg (80.0-100.0); pH 7.428 (7.360-7.450); sO2 93.8 % (92.0-98.0); tCO2 25.7 mmol/L (24.0-30.0)
[2017-05-10 13:12] LABS: ABG COMMENT ROOM AIR; STICK SITE L.RADIAL
[2017-05-10 13:41] VITALS: BP 130/76
[2017-05-10 15:22] VITALS: BP 118/70
[2017-05-10 15:50] VITALS: BP 147/77
[2017-05-10 19:35] VITALS: BP 133/61
[2017-05-11 05:52] LABS: HEMATOCRIT 45.6 % (42.0-52.0); HEMOGLOBIN 15.2 gm/dL (14.0-18.0); MCH 30.6 pg (26.0-34.0); MCHC 33.4 g/dL (28.0-37.0); MCV 91.7 fL (80.0-100.0); RBC 4.98 mil/uL (4.50-6.00); RDW 14.6 % (10.5-14.5); WBC 13.2 thou/uL (4.0-11.0)
[2017-05-11 06:12] LABS: CALCIUM 8.6 mg/dL (8.5-10.1); POTASSIUM 4.9 mmol/L (3.5-5.1)
[2017-05-11 07:50] VITALS: BP 122/69
[2017-05-11 15:05] VITALS: BP 126/90
[2017-05-11 19:15] VITALS: BP 124/75
[2017-05-12 02:08] LABS: GLYCOHEMOGLOBIN (HGB A1C) 7.6 % (4.8-5.6)
[2017-05-12 03:16] VITALS: BP 123/68
[2017-05-12 08:00] VITALS: BP 113/65
[2017-05-12] MEDS ORDERED: PREDNISONE 20 M20 MG PO (09:52)
[2017-05-12] MEDS ORDERED: AZITHROMYCIN 2250 MG PO (09:52)
[2017-05-12 10:47] VITALS: BP 113/65
[2017-05-12] MEDS ORDERED: CEFDINIR300 MG PO (11:31)
[2017-05-14 23:07] LABS: INFLUENZA B Negative (Negative); METAPNEUMOVIRUS Negative (Negative)
== END 2017-05-12 13:40 | disposition home or self-care (01) | DRG 871 ==
LOC: ER 11:23 → EROBS 12:58 → 4E 12:58
PROVIDERS: Hospitalist; Physician Assistant; Specialist
DX: A41.9 Sepsis, unspecified organism (principal); J96.21 Acute and chronic respiratory failure with hypoxia; J18.9 Pneumonia, unspecified organism; B39.2 Pulmonary histoplasmosis capsulati, unspecified; J44.0 Chronic obstructive pulmonary disease with (acute) lower respiratory infection; J44.1 Chronic obstructive pulmonary disease with (acute) exacerbation; E11.9 Type 2 diabetes mellitus without complications; I10 Essential (primary) hypertension; E78.00 Pure hypercholesterolemia, unspecified; K21.9 Gastro-esophageal reflux disease without esophagitis; F17.210 Nicotine dependence, cigarettes, uncomplicated; I25.10 Atherosclerotic heart disease of native coronary artery without angina pectoris; Z84.89 Family history of other specified conditions; Z79.82 Long term (current) use of aspirin; Z79.899 Other long term (current) drug therapy; Z95.5 Presence of coronary angioplasty implant and graft
CPT/HCPCS: 10183

== ENCOUNTER → 2017-07-06 | Outpatient (CLI) | payer OTHER, MEDICARE ==
[~2017-07-06] MED LIST changes: +AZITHROMYCIN 2250 MG PO; +CEFDINIR300 MG PO; +ITRACONAZOLE 1100 M1 PO; +LANTUS SUBQ; +LEVAQUIN 500 M500 MG PO; +PREDNISONE 20 M20 MG PO; +SYMBICORT160 MCG/4. INH; +VENTOLIN HFA 1818 GM INH
== END ==
LOC: CAT 08:33
DX: R91.8 Other nonspecific abnormal finding of lung field (principal)

== ENCOUNTER 2017-08-06 09:11 | Emergency (ER) | payer OTHER, MEDICARE ==
[~2017-08-06] VITALS: Ht 175.3 cm; Wt 75.8 kg
--- NOTE | ~2017-08-06 | EKG ---
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
[~2017-08-06 09:11] MED LIST changes: -LANTUS SUBQ; -LEVAQUIN 500 M500 MG PO; -VENTOLIN HFA 1818 GM INH
[2017-08-06] MEDS ORDERED: DUONEB 2.5-0.5 M3 ML INH (09:24)
[2017-08-06] MEDS ORDERED: LASIX 20 MG TAB20 MG PO (09:25)
[2017-08-06] MEDS ORDERED: VENTOLIN HFA 1818 GM INH (09:25)
[2017-08-06] MEDS ORDERED: LANTUS SUBQ (09:26)
[2017-08-06 10:02] LABS: ABSOLUTE NEUTROPHILS 11.4 thou/uL (1.4-8.2); BASOPHILS 0.4 % (0.0-2.0); EOSINOPHILS 0.4 % (0.0-3.0); HEMATOCRIT 45.1 % (42.0-52.0); HEMOGLOBIN 15.3 gm/dL (14.0-18.0); LYMPHOCYTES 8.2 % (24.0-44.0); MCH 30.5 pg (26.0-34.0); MCV 89.7 fL (80.0-100.0); MONOCYTES 5.4 % (1.0-8.0); PLATELET COUNT 324 thou/uL (150-400); POLYS 85.6 % (36.0-66.0); RBC 5.03 mil/uL (4.50-6.00); RDW 15.2 % (10.5-14.5); WBC 13.3 thou/uL (4.0-11.0)
[2017-08-06 10:17] LABS: ANION GAP 11 mmol/L (7-16); BUN 20 mg/dL (7-18); CALCIUM 9.8 mg/dL (8.5-10.1); CHLORIDE 98 mmol/L (98-107); CO2 27 mmol/L (21-32); CREATININE 0.8 mg/dL (0.7-1.3); GLUCOSE 153 mg/dL (74-106); POTASSIUM 3.5 mmol/L (3.5-5.1); SODIUM 136 mmol/L (136-145)
[2017-08-06 10:18] LABS: TROPONIN-I < 0.04 ng/mL (<0.06)
[2017-08-06] MEDS ORDERED: PREDNISONE 20 M20 MG PO (10:26)
[2017-08-06] MEDS ORDERED: LEVAQUIN 500 M500 MG PO (10:26)
[2017-08-06] MEDS ORDERED: PROAIR HFA8.5 GM INH (10:27)
[2017-08-06 11:22] VITALS: BP 114/71
== END 2017-08-06 11:44 | disposition home or self-care (01) ==
LOC: ER 09:11
PROVIDERS: Emergency Medicine
DX: J44.1 Chronic obstructive pulmonary disease with (acute) exacerbation (principal); J98.01 Acute bronchospasm; E11.9 Type 2 diabetes mellitus without complications; I10 Essential (primary) hypertension; E78.00 Pure hypercholesterolemia, unspecified; F17.210 Nicotine dependence, cigarettes, uncomplicated; Z95.5 Presence of coronary angioplasty implant and graft; Z98.890 Other specified postprocedural states; Z79.4 Long term (current) use of insulin; F10.99 Alcohol use, unspecified with unspecified alcohol-induced disorder

== ENCOUNTER → 2017-09-27 | Outpatient (CLI) | payer OTHER, MEDICARE ==
[~2017-09-27] MED LIST changes: +LANTUS SUBQ; +LEVAQUIN 500 M500 MG PO; +VENTOLIN HFA 1818 GM INH
== END ==
LOC: CAT 06:37
DX: J43.9 Emphysema, unspecified (principal); R91.8 Other nonspecific abnormal finding of lung field

== ENCOUNTER → 2017-12-27 | Outpatient (CLI) | payer OTHER, MEDICARE | LOC: RAD 09:22 | DX: J44.1 Chronic obstructive pulmonary disease with (acute) exacerbation (principal); J84.10 Pulmonary fibrosis, unspecified; B39.9 Histoplasmosis, unspecified; I10 Essential (primary) hypertension; E11.9 Type 2 diabetes mellitus without complications; I25.10 Atherosclerotic heart disease of native coronary artery without angina pectoris ==

== ENCOUNTER 2019-08-11 20:28 | Inpatient (IN) | payer OTHER, MEDICARE ==
[~2019-08-11] VITALS: Ht 175.3 cm; Wt 79.4 kg
[2019-08-11 20:30] VITALS: BP 151/88
[2019-08-11] MEDS ORDERED: ASPIRIN325 PO (20:50)
[2019-08-11] MEDS ORDERED: ATENOLOL 25 MG25 M1 PO (20:50)
[2019-08-11] MEDS ORDERED: LIPITOR40 MG PO (20:51)
[2019-08-11] MEDS ORDERED: GUAIFEN-CODEINE10 ML PO (20:52)
[2019-08-11] MEDS ORDERED: FISH OIL 1,0001 EAC9 PO (20:53)
[2019-08-11] MEDS ORDERED: HYDROCHLOROTHIA25 M2 PO (20:53)
[2019-08-11] MEDS ORDERED: LORCET 5-325 M1 EACH PO (20:54)
[2019-08-11] MEDS ORDERED: LANTUS SOL100 UNIT/1 SUBQ (20:56)
[2019-08-11] MEDS ORDERED: GLUCOPHAGE1000 MG PO (20:56)
[2019-08-11] MEDS ORDERED: TESSALON PERLE100 MG PO (20:57)
[2019-08-11] MEDS ORDERED: ONE TOUCH ULTR1 EACH (20:57)
[2019-08-11] MEDS ORDERED: ULTRAM 50MG TAB50 MG PO (21:03)
[2019-08-11 21:04] LABS: ABSOLUTE NEUTROPHILS 8.8 thou/uL (1.4-8.2); BASOPHILS 0.8 % (0.0-2.0); EOSINOPHILS 0.5 % (0.0-3.0); HEMATOCRIT 51.9 % (42.0-52.0); HEMOGLOBIN 17.2 gm/dL (14.0-18.0); MCH 30.2 pg (26.0-34.0); MCHC 33.2 g/dL (28.0-37.0); MCV 90.9 fL (80.0-100.0); MONOCYTES 7.7 % (1.0-8.0); PLATELET COUNT 221 thou/uL (150-400); RBC 5.71 mil/uL (4.50-6.00); RDW 15.3 % (10.5-14.5); WBC 11.7 thou/uL (4.0-11.0)
[2019-08-11] MEDS ORDERED: TRELEGY ELLIPT1 EACH INH (21:05)
[2019-08-11 21:08] LABS: ANION GAP 9 mmol/L (7-16); BUN 17 mg/dL (7-18); CALCIUM 9.6 mg/dL (8.5-10.1); CHLORIDE 90 mmol/L (98-107); CO2 27 mmol/L (21-32); GLUCOSE 157 mg/dL (74-106); POTASSIUM 4.1 mmol/L (3.5-5.1); SODIUM 126 mmol/L (136-145)
[2019-08-11 21:19] LABS: MAGNESIUM 1.9 mg/dL (1.8-2.4); SGOT 16 U/L (15-37); SGPT 23 U/L (30-65); TOTAL BILIRUBIN 0.7 mg/dL (<0.1-1.0); TOTAL PROTEIN 7.6 g/dL (6.4-8.2); TROPONIN-I <0.06 ng/mL (<0.06)
[2019-08-11 22:54] VITALS: BP 136/74
[2019-08-11 23:15] VITALS: BP 128/84
[2019-08-12 06:01] VITALS: BP 123/79
[2019-08-12 08:01] LABS: HEMATOCRIT 51.1 % (42.0-52.0); HEMOGLOBIN 16.6 gm/dL (14.0-18.0); MCH 30.1 pg (26.0-34.0); MCHC 32.5 g/dL (28.0-37.0); MCV 92.6 fL (80.0-100.0); RBC 5.51 mil/uL (4.50-6.00); RDW 15.1 % (10.5-14.5); WBC 7.4 thou/uL (4.0-11.0)
[2019-08-12 08:07] LABS: CALCIUM 8.9 mg/dL (8.5-10.1)
[2019-08-12 08:16] LABS: CHOLESTEROL 171 mg/dL (<200); HDL CHOLESTEROL 47 mg/dL (>40); LDL CHOLESTEROL 107 mg/dL (<100); TC:HDL 3.6 Ratio (Not establshd); TRIGLYCERIDE 85 mg/dL (<150); VLDL 17 mg/dL (<40)
--- NOTE | 2019-08-12 08:53 | EKG ---
[facility] [place] [address] ELECTROCARDIOGRAM REPORT Name: SAL HUGGINS Room #: 349-I ADM IN M.R.#: [id number] Admission: 08/11/19 Attend Phys: Giovanni Ly MD Discharge: Date of : 53 Report #: [id number] THIS REPORT FOR: cc: Vamsi Rojas Craig H. MD [facility] ~ THIS REPORT FOR: //name// [facility] ED Test Date: 2019-08-11 Test Time: 20:45:05 Pat Name: SAL HUGGINS Department: Room: [facility] Gender: M Assistant Spa Director: margarito : 1955 Requested By: Molly Garzon Order Number: [id number] MD: Dez Montalvo Measurements Intervals [place] Rate: 114 P: 70 GA: 152 QRS: -38 QRSD: 71 T: 64 QT: 312 QTc: 430 Interpretive Statements Sinus tachycardia Right atrial enlargement Left axis deviation RSR' in V1 or V2, probably normal variant Compared to ECG 08/06/2017 09:27:12 No significant change was found Electronically Signed On 08-12-2019 8:52:16 CDT by Dez Montalvo [email or web address] <ELECTRONICALLY SIGNED> By: Dez Montalvo MD, [facility] 08/12/19 0852 44 Dez Montalvo MD, [facility] /EPI
[2019-08-12 19:02] VITALS: BP 136/61
[2019-08-12 21:00] VITALS: BP 110/65
[2019-08-13 00:07] LABS: GLYCOHEMOGLOBIN (HGB A1C) 9.8 % (4.8-5.6)
[2019-08-13 06:21] VITALS: BP 117/67
[2019-08-13 08:18] VITALS: BP 108/62
[2019-08-13 12:35] VITALS: BP 116/70
[2019-08-13 16:25] VITALS: BP 116/70
--- NOTE | 2019-08-13 20:37 | HC ---
[facility] [place] [address] CONSULTATION Name: SAL HUGGINS Room #: 349-I ADM IN M.R.#: [id number] Admission: 08/11/19 Attend Phys: Giovanni Ly MD Discharge: Date of : 53 Report #: [id number] THIS REPORT FOR: cc: Vamsi Rojas Daniel J. MD ~ CC: Vamsi Ly DATE OF SERVICE: 08/12/2019 INFECTIOUS DISEASE CONSULTATION REASON FOR CONSULTATION: I was asked to evaluate concerning pneumonia. HISTORY OF PRESENT ILLNESS: A 63-year-old with underlying history of advanced COPD with history of pulmonary histoplasmosis, treated 2 years ago with a prolonged course of antifungal therapy. Continues to have issues with COPD exacerbations and chronic bronchitis. Over the last week, he has had increased shortness of breath. Unable to do his normal activities of daily living. He has had increased cough with purulent sputum production. No fever, chills or sweats. He has had no travel outside of his home town. His has been without respiratory infection. Last hospitalization was about 6 weeks ago in [facility]. At that time, he was diagnosed with bronchitis. ALLERGIES: None known. MEDICATIONS: As noted on his MAR, which were reviewed, now on vancomycin, Zosyn and levofloxacin. Other medications have included prednisone 20 mg a day, ProAir. PAST MEDICAL HISTORY: Diabetes; tendon surgery of right hand; tonsillectomy; hypertension; hyperlipidemia; COPD; coronary artery disease, status post stenting; broken toes, left foot; long-term tobacco use; left carotid stent; right carotid stent; pulmonary histoplasma. FAMILY HISTORY: No tuberculosis. SOCIAL HISTORY: Smoker of cigarettes. Does use alcohol. REVIEW OF SYSTEMS: No GI or complaints. No rashes or adenopathy. No bleeding disorder. No neurologic issues reported. No psychiatric issues reported. No change in vision. No oral lesions. Other 14-point review was negative other than what has been described above. PHYSICAL EXAMINATION: [facility] [address] [place] [address] CONSULTATION Name: SAL HUGGINS Room #: 349-I [facility] IN ..#: [id number] Admission: 08/11/19 Attend Phys: Giovanni Ly MD Discharge: Date of : 53 Report #: [id number] GENERAL: He was alert and cooperative. Able to sit up in bed with no distress. He had intermittent cough which was nonproductive. VITAL SIGNS: Afebrile and hemodynamically stable. HEENT: Eyes without conjunctivitis or scleral icterus. Mouth without mucositis. NECK: Supple, with no thyromegaly or mass. No palpable lymphadenopathy. LUNGS: Chest was coarse bilaterally with no consolidation. HEART: Regular, without murmur, gallop or rub. ABDOMEN: Soft and nontender with no hepatosplenomegaly or mass. BACK: Nontender with no CVA tenderness or spinal column tenderness. EXTREMITIES: With trace lower extremity edema. NEUROLOGIC: Nonfocal with no cranial nerve abnormalities. Normal gait and strength. PSYCHIATRIC: Mood was normal with no anxiety or depression. SKIN: Without rash. LABORATORY STUDIES: Reviewed. Microbiology reviewed. Chest x-ray reviewed. Influenza antigen was negative. Viral respiratory panel and coronavirus PCR is pending. IMPRESSION: A 63-year-old with advanced chronic obstructive pulmonary disease, presents now with exacerbation of chronic obstructive pulmonary disease and likely bronchopneumonia. Not much change in his chest x-ray from 2018. Underlying coronary artery disease. RECOMMENDATIONS: We will continue IV antibiotic therapy pending culture results of blood and sputum. We will await viral respiratory panel and coronavirus testing. The patient will remain in isolation, pending these studies. If no improvement over the next 24-48 hours, we will pursue further imaging with CT scan. We will also follow up histoplasma antigen. <ELECTRONICALLY SIGNED> By: Shine Toribio MD 08/13/197 2247 [id number] Shine Toribio MD /nt
[2019-08-13 21:26] VITALS: BP 126/73
[2019-08-14 04:59] VITALS: BP 118/78
[2019-08-14 06:42] LABS: HEMATOCRIT 46.8 % (42.0-52.0); HEMOGLOBIN 15.2 gm/dL (14.0-18.0); MCH 30.4 pg (26.0-34.0); MCHC 32.5 g/dL (28.0-37.0); MCV 93.6 fL (80.0-100.0); RDW 14.8 % (10.5-14.5); WBC 12.2 thou/uL (4.0-11.0)
[2019-08-14 06:56] LABS: CREATININE 0.9 mg/dL (0.7-1.3); POTASSIUM 4.4 mmol/L (3.5-5.1)
[2019-08-14 08:03] VITALS: BP 126/63
--- NOTE | 2019-08-14 11:49 | HC ---
[facility] [place] [address] CONSULTATION Name: SAL HUGGINS Room #: 349-I ADM IN M.R.#: [id number] Admission: 08/11/19 Attend Phys: Giovanni Ly MD Discharge: Date of : 53 Report #: [id number] THIS REPORT FOR: cc: Vamsi Rojas Ahmad MD ~ CC: Vamsi Ly DATE OF SERVICE: 08/13/2019 ENDOCRINE CONSULTATION NOTE CONSULTING PHYSICIAN: Dr. Woo. REASON FOR CONSULTATION: Uncontrolled type 2 diabetes mellitus, severe hyperglycemia. HISTORY OF PRESENT ILLNESS: This is a 63-year-old male patient whose medical background is significant for multiple medical issues including type 2 diabetes mellitus, hypertension, COPD and coronary artery disease. The patient was admitted due to progressive shortness of breath and productive cough. He was admitted for the treatment of a COPD exacerbation and was started on IV antibiotics in addition to high dose intravenous steroid therapy. The patient notes that he is typically maintained on a combination of Invokana 300 mg daily as well as metformin 1000 mg b.i.d. He also takes Lantus as needed at 5 units when his blood glucose is elevated. The patient explains that his blood glucose values have been typically in the low to mid 100 range for the most part without issues of hypoglycemia or severe hyperglycemia that he recalls. The patient is not aware of difficulties pertaining to diabetic nephropathy, but has intermittent numbness and tingling. The patient is known to have CAD and is status post stent placement to RCA in 10/2007. He is also hypertensive and is maintained on amlodipine and atenolol. He is hyperlipidemic and is maintained on atorvastatin 40 mg daily. REVIEW OF SYSTEMS: CONSTITUTIONAL: Fatigue, tiredness, intermittent issues with fever and chills, no body weight changes. HEENT: Negative for sore throat, sinus pain, ear drainage. PULMONARY: Noted for progressive shortness of breath, cough productive. He is oxygen dependent. He has baseline COPD issues. CARDIAC: Palpitations, but negative for chest pain, syncope or presyncope. GASTROINTESTINAL: Occasional abdominal discomfort, but no nausea, vomiting or changes in bowel movement frequency. [facility] [address] [place] [address] CONSULTATION Name: SAL HUGGINS DUNDEE Room #: 349-I ADM IN .R.#: [id number] Admission: 08/11/19 Attend Phys: Giovanni Ly MD Discharge: Date of : 53 Report #: [id number] NEUROLOGY: Negative for loss of consciousness, seizure activity or severe frequent headaches. UROLOGY: Negative for dysuria, hematuria, or frequency. Otherwise, review of systems noncontributory other than those mentioned in HPI. PAST MEDICAL HISTORY: 1. Type 2 diabetes mellitus. 2. Hypertension. 3. Hyperlipidemia. 4. Coronary artery disease, status post stent placement to RCA in 2007. 5. Baseline COPD, oxygen dependent. 6. Carotid arterial disease. 7. History of pneumonia. 8. Hypertension. 9. Hyperlipidemia. OUTPATIENT MEDICATIONS: Include Invokana 300 mg daily, metformin 1000 mg b.i.d., Symbicort 160 mcg inhalation daily, itraconazole 100 mg daily, DuoNeb q.i.d., albuterol q. 4 hours p.r.n., Lasix 20 mg daily, insulin glargine 5 units p.r.n., aspirin 325 mg daily, atenolol 25 mg daily, atorvastatin 40 mg daily, fish oil 1000 mg daily, hydrochlorothiazide 25 mg daily, Lorcet 5/325 mg q. 6 hours p.r.n., Tessalon Perles 100 mg t.i.d. p.r.n. cough, Ultram 50 mg b.i.d. p.r.n., amlodipine 10 mg daily. ALLERGIES: No known drug allergies. FAMILY HISTORY: Noncontributory. SOCIAL HISTORY: The patient denies the use of alcohol or illicit drugs. He currently smokes. PHYSICAL EXAMINATION: GENERAL: male patient who is not in apparent pain or distress. VITAL SIGNS: Blood pressure is 116/70 mmHg, heart rate is 75 beats per minute, respiration 20 per minute, temperature 36.5 Celsius. CONSTITUTIONAL: The patient is sitting upright, appears comfortable, not in apparent distress. HEENT: Anicteric sclerae. Intact extraocular motions. NECK: Supple, without JVD, carotid bruits or lymphadenopathy. I do not appreciate thyromegaly. CHEST: Shows limited air entry bilaterally with scattered rales, rhonchi and wheezes. HEART: Regular rate and rhythm without murmurs or gallops. ABDOMEN: Soft, lax. No guarding. Active bowel sounds. EXTREMITIES: Lower extremity exam noted for ankle edema. No skin breaks, ulcerations. Pedal pulses are appreciated. [facility] [address] [place] [address] CONSULTATION Name: SAL HUGGINS DUNDEE Room #: 349-I [facility] IN M.R.#: [id number] Admission: 08/11/19 Attend Phys: Giovanni Ly MD Discharge: Date of : 53 Report #: [id number] NEUROLOGIC: Awake, alert and oriented to time, place and person. The remainder of his examination is noted for a slightly diminished sensation to light touch over both lower extremities. PSYCHIATRIC: Pleasant, interactive. Normal mood and affect. LABORATORY DATA: Blood glucose values on arrival was 180, had a peak of 453 mg/dL. His most recent was 321 mg/dL. Otherwise, sodium 135, potassium 5.0, chloride 98, CO2 of 29, anion gap 8, BUN 18, creatinine 1.0, AST 16, total bilirubin 0.7, calcium 8.9, magnesium 1.9, alkaline phosphatase 140, ALT 23, total protein 7.6, albumin 4.0. EGFR 75. Lactic acid 1.5. Total CPK 31, total cholesterol 171, triglycerides 85, HDL 47, LDL 107. INR 1.0. White blood count 7.4, hemoglobin 16.6, hematocrit 51.1, platelets 217. Hemoglobin A1c 9.8%. He is negative for influenza. Actually his influenza testing for influenza A and B is pending. His testing for Covid-19 is pending. ASSESSMENT AND PLAN: 1. Type 2 diabetes mellitus. The patient is uncontrolled at baseline on his current oral regimen. His as needed use of Lantus insulin is not influential at all given the small increments and sporadic use. The patient was counseled about the proper way of using long-acting insulin. His overall control as assessed by his current hemoglobin A1c reflects inadequate control at baseline. This has worsened acutely during this hospital stay as the patient was treated with high dose steroid therapy for his pulmonary issues and not maintained on his usual oral regimen, which is understandable in view of his current hospitalization. Given the current glycemic outlook of him, I will start the patient on a combination of Lantus insulin 18 units daily in addition to Humalog insulin coverage for meals at 8 units t.i.d. a.c. and maintain coverage with Humalog supplemental scale at low intensity. Blood glucose monitoring will commence a.c. and at bedtime and further therapeutic adjustments will be made accordingly. 2. Hyperlipidemia. The patient's current level of lipid control status improved given his LDL of 107 in the setting of coronary artery disease. He is to be maintained on atorvastatin therapy for the time being. 3. Hypertension. The patient's level of blood pressure control is adequate on the current regimen of hydrochlorothiazide and amlodipine. He is to continue the same. 4. Pulmonary. The patient is in the chronic obstructive pulmonary disease exacerbation. He is currently being managed with bronchodilators as well as high dose IV steroid therapy. The patient is to be managed as per the primary hospital team. [address] [address] CONSULTATION Name: SAL HUGGINS DUNDEE Room #: 349-I [facility] IN ..#: [id number] Admission: 08/11/19 Attend Phys: Giovanni Ly MD Discharge: Date of : 53 Report #: [id number] I certainly appreciate this consultation by Dr. Woo. <ELECTRONICALLY SIGNED> By: Vitaliy Ken MD 08/14/19 1149 [id number] Vitaliy Ken MD /kain
[2019-08-14 12:08] VITALS: BP 116/66
[2019-08-14 15:22] VITALS: BP 127/72
[2019-08-14 20:33] VITALS: BP 130/70
[2019-08-15] VITALS (8 sets, daily range): BP systolic 121–148; BP diastolic 70–87
[2019-08-15 05:55] LABS: HEMATOCRIT 50.1 % (42.0-52.0); HEMOGLOBIN 16.4 gm/dL (14.0-18.0); MCH 30.6 pg (26.0-34.0); MCHC 32.7 g/dL (28.0-37.0); MCV 93.7 fL (80.0-100.0); RBC 5.35 mil/uL (4.50-6.00); WBC 11.2 thou/uL (4.0-11.0)
[2019-08-15 06:16] LABS: CALCIUM 8.7 mg/dL (8.5-10.1); POTASSIUM 4.6 mmol/L (3.5-5.1)
[2019-08-15] MEDS ORDERED: MUCINEX600 MG PO (14:38)
[2019-08-15] MEDS ORDERED: PREDNISONE 10 M10 M1 PO (14:40)
[2019-08-15] MEDS ORDERED: LEVAQUIN 750 M750 MG PO (14:40)
[2019-08-15 17:07] LABS: HISTOPLASMA MYCELIAL-ID Negative (Negative)
[2019-08-15 22:07] LABS: HISTOPLASMA MYCELIAL-CF Negative (Neg:<1:2)
[2019-08-19 15:08] LABS: ADENOVIRUS Negative (Negative); INFLUENZA A Negative (Negative); INFLUENZA B Negative (Negative); METAPNEUMOVIRUS Negative (Negative); PARAINFLUENZA 1 Negative (Negative); PARAINFLUENZA 2 Negative (Negative); PARAINFLUENZA 3 Negative (Negative); RHINOVIRUS Positive (Negative); RSV A Negative (Negative); RSV B Negative (Negative)
== END 2019-08-15 18:25 | disposition home or self-care (01) | DRG 871 ==
LOC: ER 20:28 → EROBS 22:12 → 3W 22:12
PROVIDERS: Nurse Practitioner Family; Physician Assistant; Specialist; ADMIT Hospitalist
DX: A41.9 Sepsis, unspecified organism (principal); J18.9 Pneumonia, unspecified organism; B39.2 Pulmonary histoplasmosis capsulati, unspecified; I25.10 Atherosclerotic heart disease of native coronary artery without angina pectoris; E11.9 Type 2 diabetes mellitus without complications; E78.5 Hyperlipidemia, unspecified; I10 Essential (primary) hypertension; J43.9 Emphysema, unspecified; Z87.01 Personal history of pneumonia (recurrent); Z90.89 Acquired absence of other organs; Z79.2 Long term (current) use of antibiotics; Z79.82 Long term (current) use of aspirin; Z79.891 Long term (current) use of opiate analgesic; Z79.899 Other long term (current) drug therapy; Z95.5 Presence of coronary angioplasty implant and graft
CPT/HCPCS: 10879

== ENCOUNTER 2019-10-12 17:41 | Emergency (ER) | payer OTHER, MEDICARE ==
[~2019-10-12] VITALS: Ht 175.3 cm; Wt 77.1 kg
[~2019-10-12 17:41] MED LIST changes: +ATENOLOL 25 MG25 M1 PO; +FISH OIL 1,0001 EAC9 PO; +GUAIFEN-CODEINE10 ML PO; +HYDROCHLOROTHIA25 M2 PO; +LANTUS SOL100 UNIT/1 SUBQ; +LEVAQUIN 750 M750 MG PO; +LIPITOR40 MG PO; +LORCET 5-325 M1 EACH PO; +MUCINEX600 MG PO; +ONE TOUCH ULTR1 EACH; +TESSALON PERLE100 MG PO; +TRELEGY ELLIPT1 EACH INH; +ULTRAM 50MG TAB50 MG PO
[2019-10-12 18:21] LABS: ABSOLUTE NEUTROPHILS 4.9 thou/uL (1.4-8.2); BASOPHILS 0.7 % (0.0-2.0); EOSINOPHILS 1.9 % (0.0-3.0); HEMATOCRIT 51.8 % (42.0-52.0); HEMOGLOBIN 17.5 gm/dL (14.0-18.0); LYMPHOCYTES 25.5 % (24.0-44.0); MCH 31.6 pg (26.0-34.0); MCHC 33.8 g/dL (28.0-37.0); MCV 93.5 fL (80.0-100.0); MONOCYTES 5.7 % (1.0-8.0); PLATELET COUNT 202 thou/uL (150-400); POLYS 66.2 % (36.0-66.0); RBC 5.54 mil/uL (4.50-6.00); RDW 15.6 % (10.5-14.5); WBC 7.5 thou/uL (4.0-11.0)
[2019-10-12 18:29] LABS: ANION GAP 8 mmol/L (7-16); BUN 7 mg/dL (7-18); CALCIUM 8.6 mg/dL (8.5-10.1); CHLORIDE 96 mmol/L (98-107); CO2 30 mmol/L (21-32); CREATININE 0.8 mg/dL (0.7-1.3); GLUCOSE 128 mg/dL (74-106); POTASSIUM 3.7 mmol/L (3.5-5.1); SODIUM 134 mmol/L (136-145)
[2019-10-12 18:39] LABS: ALBUMIN 4.1 g/dL (3.4-5.0); SGOT 20 U/L (15-37); SGPT 36 U/L (30-65); TOTAL BILIRUBIN 0.5 mg/dL (<0.1-1.0); TOTAL PROTEIN 7.5 g/dL (6.4-8.2); TROPONIN-I <0.06 ng/mL (<0.06)
[2019-10-12 18:46] LABS: BE(vivo) -1.5 mmol/L (-2 to +3); HCO3 25.1 mmol/L (22.0-26.0); PCO2 48.9 mmHg (35.0-45.0); PO2 101.3 mmHg (80.0-100.0); sO2 97.2 % (92.0-98.0)
[2019-10-12 18:47] LABS: pH 7.329 (7.360-7.450)
[2019-10-12] MEDS ORDERED: DOXYCYCLINE 10100 MG PO (20:18)
[2019-10-12] MEDS ORDERED: PREDNISONE 20 M20 MG PO (20:18)
[2019-10-12] MEDS ORDERED: VENTOLIN HFA 1818 GM INH (20:18)
[2019-10-12 21:29] VITALS: BP 119/66
--- NOTE | 2019-10-13 08:10 | EKG ---
[facility] [place] [place] [address] ELECTROCARDIOGRAM REPORT Name: SAL HUGGINS Room #: DEP [facility]#: [id number] Admission: 10/12/19 Attend Phys: Discharge: 10/12/19 Date of : 53 Report #: [id number] THIS REPORT FOR: cc: FAM - Family physician unknown FAM - Family physician unknown Dez Montalvo MD [facility] THIS REPORT FOR: //name// [facility] ED Test Date: 2019-10-12 Test Time: 18:42:15 Pat Name: SAL HUGGINS Department: Room: Gender: Body Technician/Painter: [facility] : 1955 Requested By: Shine Bradshaw Order Number: [id number] MD: Dez Montalvo Measurements Intervals Macy Rate: 90 P: 66 GA: 156 QRS: -16 QRSD: 80 T: 56 QT: 354 QTc: 433 Interpretive Statements Sinus rhythm Borderline left axis deviation Right ventricular conduction delay Compared to ECG 08/11/2019 20:45:05 Sinus tachycardia no longer present Electronically Signed On 10-13-2019 8:08:30 CDT by Dez Montalvo [email or web address] <ELECTRONICALLY SIGNED> By: Dez Montalvo MD, [facility] 10/13/19 [id number] Dez Montalvo MD, [facility] /EPI
== END 2019-10-12 21:15 | disposition home or self-care (01) ==
LOC: ER 17:41
PROVIDERS: Emergency Medicine
DX: J06.9 Acute upper respiratory infection, unspecified (principal); J44.1 Chronic obstructive pulmonary disease with (acute) exacerbation; Z03.818 Encounter for observation for suspected exposure to other biological agents ruled out; Z99.81 Dependence on supplemental oxygen; E11.9 Type 2 diabetes mellitus without complications; I10 Essential (primary) hypertension; E78.5 Hyperlipidemia, unspecified; J44.9 Chronic obstructive pulmonary disease, unspecified; F17.210 Nicotine dependence, cigarettes, uncomplicated; Z95.5 Presence of coronary angioplasty implant and graft; Z90.89 Acquired absence of other organs; Z98.890 Other specified postprocedural states; Z79.899 Other long term (current) drug therapy; Z79.82 Long term (current) use of aspirin; Z79.4 Long term (current) use of insulin

== ENCOUNTER → 2020-04-12 | Outpatient (CLI) | payer OTHER, MEDICARE ==
[~2020-04-12] MED LIST changes: +DOXYCYCLINE 10100 MG PO
== END ==
LOC: SJCVCIMAG 10:22
PROVIDERS: ATTEND Internal Medicine Cardiovascular Disease
DX: I65.23 Occlusion and stenosis of bilateral carotid arteries (principal); I08.2 Rheumatic disorders of both aortic and tricuspid valves; I70.203 Unspecified atherosclerosis of native arteries of extremities, bilateral legs; J44.9 Chronic obstructive pulmonary disease, unspecified; I11.9 Hypertensive heart disease without heart failure; E78.00 Pure hypercholesterolemia, unspecified; R05 Cough; E11.9 Type 2 diabetes mellitus without complications; I25.810 Atherosclerosis of coronary artery bypass graft(s) without angina pectoris; F17.200 Nicotine dependence, unspecified, uncomplicated; Z95.828 Presence of other vascular implants and grafts; Z95.1 Presence of aortocoronary bypass graft; Z79.82 Long term (current) use of aspirin; Z79.899 Other long term (current) drug therapy; Z82.49 Family history of ischemic heart disease and other diseases of the circulatory system; Z79.84 Long term (current) use of oral hypoglycemic drugs

== ENCOUNTER → 2020-04-21 | Outpatient (CLI) | payer OTHER, MEDICARE | LOC: SJCVCIMAG 07:41 | PROVIDERS: ATTEND Internal Medicine Cardiovascular Disease | DX: I25.10 Atherosclerotic heart disease of native coronary artery without angina pectoris (principal); I49.3 Ventricular premature depolarization; R00.0 Tachycardia, unspecified; Z79.82 Long term (current) use of aspirin; Z79.899 Other long term (current) drug therapy ==

== ENCOUNTER → 2020-11-01 | Outpatient (CLI) | payer OTHER, MEDICARE | LOC: SJCVC 10:20 | PROVIDERS: ATTEND Internal Medicine Cardiovascular Disease | DX: I49.8 Other specified cardiac arrhythmias (principal); I11.9 Hypertensive heart disease without heart failure; I25.10 Atherosclerotic heart disease of native coronary artery without angina pectoris; I73.9 Peripheral vascular disease, unspecified; E78.00 Pure hypercholesterolemia, unspecified; E11.9 Type 2 diabetes mellitus without complications; I65.23 Occlusion and stenosis of bilateral carotid arteries; J44.9 Chronic obstructive pulmonary disease, unspecified; G47.33 Obstructive sleep apnea (adult) (pediatric); B39.9 Histoplasmosis, unspecified; Z82.49 Family history of ischemic heart disease and other diseases of the circulatory system; Z79.84 Long term (current) use of oral hypoglycemic drugs; Z79.82 Long term (current) use of aspirin; Z79.899 Other long term (current) drug therapy; Z72.89 Other problems related to lifestyle; Z72.0 Tobacco use ==

== ENCOUNTER → 2021-03-28 | Outpatient (CLI) | payer OTHER, MEDICARE | LOC: SJCVCIMAG 09:42 | PROVIDERS: ATTEND Internal Medicine Cardiovascular Disease | DX: I10 Essential (primary) hypertension (principal); I25.10 Atherosclerotic heart disease of native coronary artery without angina pectoris; E78.5 Hyperlipidemia, unspecified; J44.9 Chronic obstructive pulmonary disease, unspecified; E78.00 Pure hypercholesterolemia, unspecified; E11.9 Type 2 diabetes mellitus without complications; G47.33 Obstructive sleep apnea (adult) (pediatric); F17.210 Nicotine dependence, cigarettes, uncomplicated; Z79.899 Other long term (current) drug therapy; Z72.89 Other problems related to lifestyle ==